=== PATIENT | female | born 2000 | race Caucasian/White ===

== ENCOUNTER 2024-01-11 02:55 | Emergency (ER) | payer SELFPAY ==
[2024-01-11] MEDS ORDERED: Ondansetron PF 4 MG/2 ML Vial ONE (03:44)
[2024-01-11] MEDS ORDERED: Ketorolac Tromethamine 30 MG (1 mL) VIAL ONE (03:44)
[2024-01-11 03:50] LABS: Bacteria/HPF None Seen HPF (None Seen); Bilirubin Negative (Negative); Blood, Urine Trace (Negative); CAUTI Indications for Culture Pelvic or flank pain; Clarity Turbid (Clear); Glucose, Urine (Dipstick) Normal (Negative); Ketone, Urine Negative (Negative); Leukocyte Negative Leu/uL (Negative); Nitrite Negative (Negative); Protein, Urine (Dipstick) Negative (Neg-Trace); Urobilinogen Normal mg/dL (Less than 2); WBC/HPF 0-3 HPF (0-3); pH, Urine 5.5 (5.0-9.0)
[2024-01-11 03:51] LABS: Pregnancy Test - Urine (BHCG) Negative (Negative); Pregu Control Background? CLEAR/WHITE (CLR/WHITE); Pregu Control Bar Appear? YES (CONTROL BAR)
[2024-01-11 03:52] LABS: Urine Culture Reflex No No
[2024-01-11 03:58] LABS: #Basophils Less than 0.03 10x3/uL (0.0-0.2); %Basophils 0.4 % (0.0-1.0); %Eosinophils 1.8 % (0.0-10.0); %Lymphocytes 40.2 % (21.0-51.0); %Monocytes 7.1 % (0.0-10.0); %Neutrophils 50.3 % (42.0-75.0); Hematocrit 36.8 % (36.0-47.0); Hemoglobin 12.8 g/dL (12.0-16.0); Mean Corpuscular HGB CONC 34.8 g/dL (32.0-36.0); Mean Corpuscular Hemoglobin 29.2 pg (27.0-31.0); Platelet Count 221 10x3/uL (130-400); RBC Distribution Width 11.8 % (11.5-14.5); Red Blood Cell (RBC) Count 4.38 mill/uL (4.20-5.40)
[2024-01-11 04:17] LABS: Anion Gap 13 mmol/L (10-20); BUN (Urea Nitrogen) 13 mg/dL (7.0-18.7); Calc. Creatinine Clearance 0 mL/min (70-130); Carbon Dioxide 26 mmol/L (22-29); Chloride 107 mmol/L (98-107); Potassium 3.7 mmol/L (3.5-5.1); Sodium 142 mmol/L (136-145)
[2024-01-11 04:18] LABS: ALT (SGPT) 12 U/L (8-55); AST (SGOT) 16 U/L (5-34); Albumin 4.1 g/dL (3.5-5.0); Alkaline Phosphatase 58 U/L (40-110); Bilirubin, Total 0.6 mg/dL (0.2-1.2); Calcium 9.3 mg/dL (7.8-10.44); Estimated GFR 109; Globulin 3.3 g/dL (2.4-3.5); Glucose 108 mg/dL (70-105); Lipase 27 U/L (8-78); Protein, Total 7.4 g/dL (6.0-8.3)
== END 2024-01-11 05:24 | disposition home or self-care (01) ==
LOC: ERS 02:55
DX: N13.2 Hydronephrosis with renal and ureteral calculous obstruction (principal); G90.A Postural orthostatic tachycardia syndrome [POTS]
CPT/HCPCS: 74176; 80053; 81001; 81025; 83690; 85025; 96374; 96375; J1885; J2405

== ENCOUNTER 2024-12-05 08:39 | Emergency (ER) | payer BC ==
[2024-12-05] MEDS ORDERED: Acetaminophen 500 MG TAB ONE (09:17)
[2024-12-05] MEDS ORDERED: Ondansetron PF 4 MG/2 ML Vial ONE (09:18)
[2024-12-05 09:25] LABS: #Basophils Less than 0.03 10x3/uL (0.0-0.2); #Eosinophils 0.05 10x3/uL (0.0-0.7); #Monocytes 0.45 10x3/uL (0.11-0.59); #Neutrophils 3.55 10x3/uL (1.40-6.50); %Basophils 0.2 % (0.0-1.0); %Eosinophils 0.9 % (0.0-10.0); %Lymphocytes 27.6 % (21.0-51.0); %Monocytes 8.0 % (0.0-10.0); %Neutrophils 63.1 % (42.0-75.0); Hematocrit 33.8 % (36.0-47.0); Hemoglobin 11.6 g/dL (12.0-16.0); Mean Corpuscular Hemoglobin 28.9 pg (27.0-31.0); Mean Corpuscular Volume 84.1 fL (78.0-98.0); Platelet Count 196 10x3/uL (130-400); Red Blood Cell (RBC) Count 4.02 mill/uL (4.20-5.40); White Blood Cell (WBC) Count 5.62 10x3/uL (4.8-10.8)
[2024-12-05 09:38] LABS: ALT (SGPT) 15 U/L (Less than 34); AST (SGOT) 21 U/L (11-34); Albumin 3.7 g/dL (3.1-4.5); Alkaline Phosphatase 44 U/L (40-110); Anion Gap 14 mmol/L (10-20); BUN (Urea Nitrogen) 6 mg/dL (7.0-18.7); Bilirubin, Total 0.5 mg/dL (0.3-1.2); Calc. Creatinine Clearance 0 mL/min (70-130); Calcium 9.3 mg/dL (7.8-10.44); Carbon Dioxide 20 mmol/L (22-29); Chloride 106 mmol/L (98-107); Globulin 3.7 g/dL (2.4-3.5); Glucose 95 mg/dL (70-105); Potassium 3.7 mmol/L (3.5-5.1); Sodium 136 mmol/L (136-145)
[2024-12-05 09:42] LABS: CAUTI Indications for Culture Pelvic or flank pain; Glucose, Urine (Dipstick) Normal (Negative); Leukocyte 25 Leu/uL (Negative); Protein, Urine (Dipstick) Negative (Neg-Trace); RBC/HPF 0-3 HPF (0-3); Specific Gravity, Urine 1.020 (1.002-1.036); WBC/HPF 0-3 HPF (0-3)
[2024-12-05 09:47] LABS: Bacteria/HPF Rare-Few HPF (None Seen); Urine Culture Reflex No No
== END 2024-12-05 12:38 | disposition home or self-care (01) ==
LOC: ERS 08:39
DX: O99.891 Other specified diseases and conditions complicating pregnancy (principal); R10.32 Left lower quadrant pain; Z3A.17 17 weeks gestation of pregnancy
CPT/HCPCS: 76770; 76815; 80053; 81001; 84702; 85025; 87086; 96374

== ENCOUNTER 2025-01-11 08:21 | Outpatient (CLI) | payer BC | END 2025-01-11 08:22 | disposition home or self-care (01) | LOC: SCSULT 08:21 | PROVIDERS: ATTEND Nurse Practitioner | DX: Z33.1 Pregnant state, incidental (principal) | CPT/HCPCS: 76805 ==